=== PATIENT | male | born 1975 | race Caucasian/White ===

== ENCOUNTER 2017-12-25 15:38 | Emergency (ER) | payer MEDICAID ==
[~2017-12-25] VITALS: Ht 185.4 cm; Wt 97.7 kg
[2017-12-25] MEDS ORDERED: PANT40TA25 PO (15:42)
[2017-12-25] MEDS ORDERED: MELA3TAB66 (15:42)
[2017-12-25] MEDS ORDERED: OLAN5TAB2 PO (15:42)
[2017-12-25] MEDS ORDERED: DIVA-76 PO (15:42)
[2017-12-25] MEDS ORDERED: MethylPREDNISolone SOD SUCC 125 MG/2 ML VIAL IM ONE (17:15)
[2017-12-25] MEDS ORDERED: DiphenhydrAMINE HCL 50 MG/ML VIAL IM ONE (17:15)
[2017-12-25 17:27] VITALS: BP 125/73
== END 2017-12-25 17:43 | disposition home or self-care (01) ==
LOC: EMS 15:39
DX: T78.40XA Allergy, unspecified, initial encounter (principal); F17.210 Nicotine dependence, cigarettes, uncomplicated; Z88.6 Allergy status to analgesic agent; Z88.8 Allergy status to other drugs, medicaments and biological substances; X58.XXXA Exposure to other specified factors, initial encounter
CPT/HCPCS: 96372; 99284; J1200; J2930

== ENCOUNTER 2017-12-28 12:20 | Emergency (ER) | payer MEDICAID ==
[~2017-12-28] VITALS: Ht 185.4 cm; Wt 100.0 kg
[~2017-12-28 12:20] MED LIST: DIVA-76 PO; MELA3TAB66; OLAN5TAB2 PO; PANT40TA25 PO
[2017-12-28] MEDS ORDERED: SODIUM CHLORIDE 0.9% 1,000 ML IV ONE (13:00)
[2017-12-28 13:22] LABS: BASOPHILS % (AUTO) 0.6 % (0.0-2.0); EOSINOPHILS % (AUTO) 1.9 % (1.0-6.0); HEMATOCRIT 40.9 % (41-53); HEMOGLOBIN 14.7 g/dL (13.5-17.5); LYMPHOCYTES # (AUTO) 2.8 K/uL (1.0-4.8); LYMPHOCYTES % (AUTO) 29.7 % (22.0-44.0); MEAN CORPUSCULAR HEMOGLOBIN 33.2 pg (26.0-34.0); MEAN CORPUSCULAR HGB CONC 35.8 G/dL (31.0-37.0); MEAN CORPUSCULAR VOLUME 93 fL (80-100); MONOCYTES # (AUTO) 0.8 K/uL (0.1-1.0); MONOCYTES % (AUTO) 8.1 % (2.0-9.0); NEUTROPHILS # (AUTO) 5.7 K/uL (1.8-7.7); NEUTROPHILS % (AUTO) 59.7 % (40.0-70.0); PLATELET COUNT (AUTO) 216 K/uL (150-450); RED BLOOD CELL COUNT(AUTO) 4.42 MIL/uL (4.50-5.90); RED CELL DISTRIBUTION WIDTH 13.7 % (11.5-14.5)
[2017-12-28 13:31] LABS: AMPHET/METH SCREEN,URINE NEGATIVE (NEGATIVE); BARBITURATE SCREEN, URINE NEGATIVE (NEGATIVE); BENZODIAZEPINES SCREEN,URINE NEGATIVE (NEGATIVE); CANNABINOID SCREEN,URINE POSITIVE (NEGATIVE); COCAINE SCREEN,URINE NEGATIVE (NEGATIVE); METHADONE SCREEN, URINE NEGATIVE (NEGATIVE); OPIATE SCREEN,URINE NEGATIVE (NEGATIVE)
[2017-12-28 13:33] LABS: PHENCYCLIDINE SCREEN,URINE NEGATIVE (NEGATIVE)
[2017-12-28 13:35] LABS: ANION GAP 10 mmol/L (8-16); CALCIUM, TOTAL 7.9 mg/dL (8.8-10.5); CARBON DIOXIDE 26 mmol/L (22-29); CHLORIDE 105 mmol/L (98-107); CREATININE 0.76 mg/dL (0.60-1.30); GLOMERULAR FILTR. RATE CALC > 60 mL/min (>60); GLUCOSE,RANDOM 126 mg/dL (70-110); POTASSIUM 3.7 mmol/L (3.5-5.1); SODIUM SERUM 141 mmol/L (136-145); UREA NITROGEN, BLOOD 9 mg/dL (7-18)
[2017-12-28 13:46] LABS: VALPROIC ACID 33 mcg/mL (50-100)
[2017-12-28 14:02] LABS: APPEARANCE,URINE CLEAR (CLEAR); BILIRUBIN,URINE NEGATIVE (NEGATIVE); GLUCOSE, URINE (UA) NEGATIVE (NEGATIVE); KETONES,URINE NEGATIVE (NEGATIVE); LEUKOCYTE ESTERASE ,URINE NEGATIVE (NEGATIVE); NITRATE,URINE NEGATIVE (NEGATIVE); OCCULT BLOOD,URINE NEGATIVE (NEGATIVE); PROTEIN,URINE NEGATIVE (NEGATIVE); UROBILINOGEN,URINE 0.2 mg/dL (<=1.0)
[2017-12-28 14:12] LABS: BACTERIA,URINE None Seen /HPF (None Seen); RBC,URINE None Seen /HPF (0-2); SQUAMOUS EPITHELIAL CELL,UR Rare /LPF (None Seen); WBC,URINE None Seen /HPF (0-5)
[2017-12-28] MEDS ORDERED: HydrOXYzine PAMOATE 50 MG CAPSULE PO ONE (14:45)
[2017-12-28 15:20] VITALS: BP 131/87
== END 2017-12-28 15:24 | disposition home or self-care (01) ==
LOC: EMS 12:20
DX: R00.2 Palpitations (principal); R42 Dizziness and giddiness; R53.83 Other fatigue; F17.210 Nicotine dependence, cigarettes, uncomplicated; F15.10 Other stimulant abuse, uncomplicated; Z88.6 Allergy status to analgesic agent; Z88.5 Allergy status to narcotic agent; Z88.8 Allergy status to other drugs, medicaments and biological substances
CPT/HCPCS: 36415; 80048; 80164; 80307; 81001; 85025; 93005; 96360; 99285; 99406; J7030

== ENCOUNTER 2018-01-10 16:00 | Inpatient (IN) | payer MEDICAID ==
[~2018-01-10] VITALS: Ht 180.3 cm; Wt 96.6 kg
[~2018-01-10 16:00] MED LIST changes: -MELA3TAB66; -PANT40TA25 PO
[2018-01-10 19:25] LABS: BASOPHILS % (AUTO) 0.6 % (0.0-2.0); HEMATOCRIT 38.3 % (41-53); HEMOGLOBIN 13.4 g/dL (13.5-17.5); LYMPHOCYTES # (AUTO) 2.9 K/uL (1.0-4.8); LYMPHOCYTES % (AUTO) 32.1 % (22.0-44.0); MEAN CORPUSCULAR HEMOGLOBIN 32.3 pg (26.0-34.0); MEAN CORPUSCULAR VOLUME 92 fL (80-100); MONOCYTES # (AUTO) 0.7 K/uL (0.1-1.0); MONOCYTES % (AUTO) 7.8 % (2.0-9.0); NEUTROPHILS # (AUTO) 5.1 K/uL (1.8-7.7); NEUTROPHILS % (AUTO) 57.5 % (40.0-70.0); PLATELET COUNT (AUTO) 223 K/uL (150-450); RED BLOOD CELL COUNT(AUTO) 4.15 MIL/uL (4.50-5.90); RED CELL DISTRIBUTION WIDTH 13.9 % (11.5-14.5)
[2018-01-10 19:32] LABS: AMPHET/METH SCREEN,URINE NEGATIVE (NEGATIVE); BARBITURATE SCREEN, URINE NEGATIVE (NEGATIVE); BENZODIAZEPINES SCREEN,URINE NEGATIVE (NEGATIVE); CANNABINOID SCREEN,URINE POSITIVE (NEGATIVE); COCAINE SCREEN,URINE NEGATIVE (NEGATIVE); METHADONE SCREEN, URINE NEGATIVE (NEGATIVE); OPIATE SCREEN,URINE NEGATIVE (NEGATIVE); PHENCYCLIDINE SCREEN,URINE NEGATIVE (NEGATIVE)
[2018-01-10 19:33] LABS: ANION GAP 8 mmol/L (8-16); CALCIUM, TOTAL 8.6 mg/dL (8.8-10.5); CARBON DIOXIDE 29 mmol/L (22-29); CHLORIDE 105 mmol/L (98-107); CREATININE 0.89 mg/dL (0.60-1.30); GLOMERULAR FILTR. RATE CALC > 60 mL/min (>60); GLUCOSE,RANDOM 113 mg/dL (70-110); SODIUM SERUM 142 mmol/L (136-145); UREA NITROGEN, BLOOD 15 mg/dL (7-18)
[2018-01-10 19:39] LABS: ALANINE AMINOTRANSFERASE 54 U/L (12-78); ALBUMIN 3.4 g/dL (3.4-5.0); ALKALINE PHOSPHATASE 66 U/L (46-116); ASPARTATE AMINOTRANSFERASE 32 U/L (15-37); BILIRUBIN,TOTAL 0.4 mg/dL (0.1-1.0)
[2018-01-10 20:29] LABS: VALPROIC ACID < 3 mcg/mL (50-100)
[2018-01-10] MEDS ORDERED: HALOPERIDOL 5 MG TABLET PO PRN (21:45)
[2018-01-11 03:40] VITALS: BP 149/79
[2018-01-11] MEDS: LORazepam 2 MG TABLET PO PRN ×4 (04:09→20:23)
[2018-01-11] MEDS ORDERED: PETROLATUM,WHITE 71 GM JELLY TP PRN (07:45)
[2018-01-11] MEDS ORDERED: ALBUTEROL SULFATE HFA 90 MCG/PUFF 8 GM INHALER IH PRN (07:45)
[2018-01-11] MEDS ORDERED: LOPERAMIDE HCL 2 MG CAPSULE PO PRN (07:45)
[2018-01-11] MEDS ORDERED: ONDANSETRON HCL 4 MG TABLET PO PRN (07:45)
[2018-01-11] MEDS ORDERED: MAG HYDROX/AL HYDROX/SIMETH ES 30 ML SUSPENSION UDCUP PO PRN (07:45)
[2018-01-11] MEDS ORDERED: CloNIDine HCL 0.1 MG TABLET PO PRN (07:45)
[2018-01-11] MEDS ORDERED: DOCUSATE SODIUM 100 MG CAPSULE PO PRN (07:45)
[2018-01-11] MEDS ORDERED: MAGNESIUM HYDROXIDE SUSPENSION 30 ML UDCUP PO PRN (07:45)
[2018-01-11 08:35] VITALS: BP 114/64
[2018-01-11] MEDS: NICOTINE 14 MG/24 HOUR PATCH TD SCH (08:59)
[2018-01-11] MEDS: FERROUS SULFATE 325 MG EC TABLET PO SCH (18:37)
[2018-01-11] MEDS: MIRTAZAPINE 15 MG TABLET PO SCH (20:20)
[2018-01-12] MEDS: LORazepam 2 MG TABLET PO PRN ×3 (07:09→17:10)
[2018-01-12] MEDS: FERROUS SULFATE 325 MG EC TABLET PO SCH ×3 (07:10→17:14)
[2018-01-12] MEDS: NICOTINE 14 MG/24 HOUR PATCH TD SCH (08:15)
[2018-01-12] MEDS: ARIPiprazole 5 MG TABLET PO SCH (08:18)
[2018-01-12 08:34] VITALS: BP 138/92
[2018-01-12] MEDS: MIRTAZAPINE 15 MG TABLET PO SCH (21:00)
[2018-01-13] MEDS: LORazepam 2 MG TABLET PO PRN ×4 (00:18→14:47)
[2018-01-13 06:10] LABS: BASOPHILS % (AUTO) 0.6 % (0.0-2.0); EOSINOPHILS % (AUTO) 2.2 % (1.0-6.0); HEMATOCRIT 44.8 % (41-53); HEMOGLOBIN 15.5 g/dL (13.5-17.5); LYMPHOCYTES # (AUTO) 2.5 K/uL (1.0-4.8); LYMPHOCYTES % (AUTO) 27.9 % (22.0-44.0); MEAN CORPUSCULAR HEMOGLOBIN 32.2 pg (26.0-34.0); MEAN CORPUSCULAR HGB CONC 34.7 G/dL (31.0-37.0); MEAN CORPUSCULAR VOLUME 93 fL (80-100); MONOCYTES # (AUTO) 0.7 K/uL (0.1-1.0); MONOCYTES % (AUTO) 7.4 % (2.0-9.0); NEUTROPHILS # (AUTO) 5.5 K/uL (1.8-7.7); NEUTROPHILS % (AUTO) 61.9 % (40.0-70.0); PLATELET COUNT (AUTO) 239 K/uL (150-450); RED BLOOD CELL COUNT(AUTO) 4.82 MIL/uL (4.50-5.90)
[2018-01-13 06:33] LABS: ALANINE AMINOTRANSFERASE 48 U/L (12-78); ALBUMIN 3.6 g/dL (3.4-5.0); ALKALINE PHOSPHATASE 85 U/L (46-116); ANION GAP 5 mmol/L (8-16); ASPARTATE AMINOTRANSFERASE 22 U/L (15-37); BILIRUBIN,TOTAL 0.4 mg/dL (0.1-1.0); CALCIUM, TOTAL 9.5 mg/dL (8.8-10.5); CARBON DIOXIDE 30 mmol/L (22-29); CHLORIDE 103 mmol/L (98-107); CHOL/HDL RATIO 3.4 (4.2-7.3); CHOLESTEROL 161 mg/dL (131-200); CREATININE 0.82 mg/dL (0.60-1.30); GLOMERULAR FILTR. RATE CALC > 60 mL/min (>60); GLUCOSE,RANDOM 102 mg/dL (70-110); HDL CHOLESTEROL 47 mg/dL (40-60); LDL CHOL (CALC.) 67 mg/dL (0-130); POTASSIUM 4.4 mmol/L (3.5-5.1); SODIUM SERUM 138 mmol/L (136-145); THYROID STIMULATING HORMONE 4.35 uIU/mL (0.36-3.74); TOTAL PROTEIN, SERUM 7.5 g/dL (6.4-8.2); TRIGLYCERIDES 235 mg/dL (15-150); UREA NITROGEN, BLOOD 15 mg/dL (7-18)
[2018-01-13] MEDS: FERROUS SULFATE 325 MG EC TABLET PO SCH ×3 (06:50→16:22)
[2018-01-13 07:20] LABS: HEMOGLOBIN A1C 4.9 % (4.5-6.2)
[2018-01-13 08:00] VITALS: BP 118/78
[2018-01-13] MEDS: NICOTINE 14 MG/24 HOUR PATCH TD SCH (09:00)
[2018-01-13] MEDS: ARIPiprazole 5 MG TABLET PO SCH (09:00)
[2018-01-13 16:39] VITALS: BP 124/82
[2018-01-13] MEDS: CIPROFLOXACIN HCL 0.2%/HYDROCORT 1% 10 ML OTIC SUSPENSION AD SCH (17:00)
[2018-01-13] MEDS ORDERED: CIPROFLOXACIN HCL 0.2%/HYDROCORT 1% 10 ML OTIC SUSPENSION AD SCH (17:00)
[2018-01-13 17:26] VITALS: BP 124/82
[2018-01-13] MEDS: MIRTAZAPINE 15 MG TABLET PO SCH ×2 (20:35→21:10)
[2018-01-13] MEDS: ZOLPIDEM TARTRATE 10 MG TABLET PO PRN (21:11)
[2018-01-14 01:30] VITALS: BP 133/88
[2018-01-14] MEDS: LORazepam 2 MG TABLET PO PRN ×4 (01:37→16:01)
[2018-01-14] MEDS: FERROUS SULFATE 325 MG EC TABLET PO SCH ×3 (06:55→16:31)
[2018-01-14] MEDS: NICOTINE 14 MG/24 HOUR PATCH TD SCH (09:00)
[2018-01-14 09:54] VITALS: BP 129/78
[2018-01-14] MEDS: ARIPiprazole 5 MG TABLET PO SCH (10:00)
[2018-01-14] MEDS: CIPROFLOXACIN HCL 0.2%/HYDROCORT 1% 10 ML OTIC SUSPENSION AD SCH ×2 (11:01→16:32)
[2018-01-14] MEDS: MIRTAZAPINE 15 MG TABLET PO SCH (20:29)
[2018-01-14] MEDS: ZOLPIDEM TARTRATE 10 MG TABLET PO PRN (20:29)
[2018-01-15] MEDS: LORazepam 2 MG TABLET PO PRN ×2 (06:07→10:11)
[2018-01-15] MEDS: FERROUS SULFATE 325 MG EC TABLET PO SCH ×2 (06:56→12:16)
[2018-01-15 08:05] VITALS: BP 109/77
[2018-01-15] MEDS: NICOTINE 14 MG/24 HOUR PATCH TD SCH (09:00)
[2018-01-15] MEDS: ARIPiprazole 5 MG TABLET PO SCH (09:00)
[2018-01-15] MEDS: CIPROFLOXACIN HCL 0.2%/HYDROCORT 1% 10 ML OTIC SUSPENSION AD SCH (10:11)
[2018-01-15] MEDS ORDERED: ARIP5TAB8 PO (11:31)
[2018-01-15] MEDS ORDERED: MIRT15 PO (11:31)
[2018-01-15] MEDS ORDERED: CIPOTIC AD (11:42)
[2018-01-15] MEDS ORDERED: NICO-703 TD (11:43)
[2018-01-15] MEDS ORDERED: FERR-89 PO (11:43)
== END 2018-01-15 15:45 | disposition home or self-care (01) | DRG 750 ==
LOC: EMS 16:01 → 3EC 01-11 02:00
PROVIDERS: ADMIT Psychiatry & Neurology Psychiatry; ATTEND Psychiatry & Neurology Psychiatry
DX: F25.1 Schizoaffective disorder, depressive type (principal); Z59.0 Homelessness; R45.851 Suicidal ideations; F19.20 Other psychoactive substance dependence, uncomplicated; Z63.9 Problem related to primary support group, unspecified; Z91.5 Personal history of self-harm; Z81.8 Family history of other mental and behavioral disorders; F43.10 Post-traumatic stress disorder, unspecified; D64.9 Anemia, unspecified; M54.9 Dorsalgia, unspecified; Z71.6 Tobacco abuse counseling; Z88.8 Allergy status to other drugs, medicaments and biological substances; Z88.3 Allergy status to other anti-infective agents; Z88.5 Allergy status to narcotic agent; F17.210 Nicotine dependence, cigarettes, uncomplicated
CPT/HCPCS: 83036; 84443; 99285; G0480